=== PATIENT | female | born 1990 ===

== ENCOUNTER 2017-09-08 06:26 | Inpatient (IN) | payer OTHER ==
[2017-09-08] MEDS ORDERED: Sodium Citrate/Citric Acid* 15 ML UDC ONE (06:31)
[2017-09-08] MEDS ORDERED: ceFOXitin 2 GM IVPREMIX* 2 GM/50 ML BAG ONE (06:32)
[2017-09-08] MEDS ORDERED: Morphine PF AMP (0.5MG/ML)* 5 MG/10 ML AMP ONE (08:59)
[2017-09-08] MEDS ORDERED: OXYTOCIN* 10 UNITS/ML 1 ML VIAL ONE (09:34)
[2017-09-08] MEDS ORDERED: oxyCODONE/Acetamin 5/325 MG* TAB PO PRN (09:44)
[2017-09-08] MEDS ORDERED: Naloxone* 0.4 MG/ML 1 ML VIAL IV PRN (09:44)
[2017-09-08] MEDS ORDERED: Ondansetron INJ* 2 MG/ML VIAL IV PRN (09:47)
[2017-09-08] MEDS ORDERED: Zolpidem TAB* 5 MG PO PRN (10:14)
[2017-09-08] MEDS ORDERED: Glycerin ADULT SUPP PR PRN (10:14)
[2017-09-08] MEDS ORDERED: Witch Hazel PAD* JAR TOPICAL PRN (10:14)
[2017-09-08] MEDS ORDERED: Dibucaine 1% 28.35 GM TUBE PR PRN (10:14)
[2017-09-08] MEDS: Ibuprofen TAB* 400 MG PO SCH ×3 (11:56→20:56)
[2017-09-08] MEDS: Simethicone TAB* 80 MG TAB.CHEW PO SCH ×3 (13:31→20:56)
[2017-09-08] MEDS: Docusate CAP* 100 MG PO SCH ×2 (13:36→20:56)
[2017-09-09] MEDS ORDERED: Acetaminophen TAB* 325 MG PO PRN (03:00)
[2017-09-09] MEDS ORDERED: oxyCODONE/Acetamin 5/325 MG* TAB PO PRN (03:00)
[2017-09-09] MEDS: Ibuprofen TAB* 600 MG PO PRN ×4 (04:11→21:56)
[2017-09-09] MEDS: Docusate CAP* 100 MG PO SCH ×3 (08:58→21:56)
[2017-09-09] MEDS: Simethicone TAB* 80 MG TAB.CHEW PO SCH ×4 (08:58→21:56)
[2017-09-09] MEDS: Ferrous Gluconate TAB* 324 MG TAB PO SCH ×2 (09:00→22:40)
[2017-09-09 10:51] LABS: Hematocrit 36 % (35-47); Hemoglobin 12.2 g/dl (12.0-16.0); Mean Corpuscular HGB Conc 34 g/dl (31-36); Mean Corpuscular Hemoglobin 33 pg (27-31); Mean Corpuscular Volume 97 fL (80-97); Mean Platelet Volume 10 um3 (7.4-10.4); Red Blood Count 3.68 10^6/ul (4.0-5.4); Red Cell Distribution Width 13 % (10.5-15); White Blood Count 10.3 10^3/ul (3.5-10.8)
[2017-09-09] MEDS: oxyCODONE/Acetamin 5/325 MG* TAB PO PRN (16:49)
[2017-09-10] MEDS: Ibuprofen TAB* 600 MG PO PRN ×4 (04:10→23:27)
[2017-09-10] MEDS: oxyCODONE/Acetamin 5/325 MG* TAB PO PRN ×2 (08:00→11:51)
[2017-09-10] MEDS: Docusate CAP* 100 MG PO SCH ×3 (08:12→21:42)
[2017-09-10] MEDS: Simethicone TAB* 80 MG TAB.CHEW PO SCH ×4 (08:13→21:42)
[2017-09-10] MEDS: Ferrous Gluconate TAB* 324 MG TAB PO SCH (09:00)
[2017-09-11] MEDS: oxyCODONE/Acetamin 5/325 MG* TAB PO PRN ×2 (04:20→08:35)
[2017-09-11 08:10] VITALS: BP 101/63
[2017-09-11] MEDS: Docusate CAP* 100 MG PO SCH (08:34)
[2017-09-11] MEDS: Simethicone TAB* 80 MG TAB.CHEW PO SCH (08:34)
[2017-09-11] MEDS: Ibuprofen TAB* 600 MG PO PRN (10:00)
[2017-09-11] MEDS ORDERED: medroxyPROGESTERone ACETATE (DEPOT)* 150 MG/ML 1 ML IM ONE (11:59)
== END 2017-09-11 12:30 | disposition home or self-care (01) | DRG 540 ==
LOC: MCHOB 06:26
PROVIDERS: ADMIT Obstetrics & Gynecology; ATTEND Obstetrics & Gynecology
PROC: 4A1HXCZ Monitoring of Products of Conception, Cardiac Rate, External Approach (ICD-10-PCS; 2017-09-08)
PROC: 10D00Z1 Extraction of Products of Conception, Low, Open Approach (ICD-10-PCS; principal; 2017-09-08 08:45)
DX: O34.211 Maternal care for low transverse scar from previous cesarean delivery (principal); Z37.0 Single live birth; Z3A.39 39 weeks gestation of pregnancy
CPT/HCPCS: 36415; 85025; A9270-GY; J0694; J1050; J2590